=== PATIENT | male | born 1960 | race African-American/Black ===

== ENCOUNTER 2018-08-31 04:35 | Emergency (ER) | payer OTHER ==
[~2018-08-31] VITALS: Ht 175.3 cm; Wt 73.0 kg
[2018-08-31] MEDS ORDERED: LISINOPRIL5 MG (04:47)
[2018-08-31] MEDS ORDERED: LISINOPRIL-HCT1 EAC2 PO (06:41)
== END 2018-08-31 07:46 | disposition home or self-care (01) ==
LOC: ER 04:35
DX: R60.0 Localized edema (principal)

== ENCOUNTER → 2022-08-18 | Emergency (ER) | payer OTHER ==
[~2022-08-18] VITALS: Ht 177.8 cm; Wt 72.6 kg
[~2022-08-18] MED LIST: LISINOPRIL-HCT1 EAC2 PO; LISINOPRIL5 MG
== END | disposition left against medical advice (07) ==
LOC: ER 21:27
DX: Z53.21 Procedure and treatment not carried out due to patient leaving prior to being seen by health care provider (principal)